=== PATIENT | female | born 1945 | race Caucasian/White ===

== ENCOUNTER → 2024-10-31 08:40 | Outpatient (REF) | payer MEDICARE, OTHER, SELFPAY | LOC: RAD 08:40 | PROVIDERS: ATTENDING PHYSICIAN Surgery Vascular Surgery; FAMILY PHYSICIAN Internal Medicine | DX: K55.1 Chronic vascular disorders of intestine (principal); I65.22 Occlusion and stenosis of left carotid artery | CPT/HCPCS: 93880; 93975 ==

== ENCOUNTER → 2024-12-02 08:59 | Outpatient (REF) | payer MEDICARE, OTHER, SELFPAY ==
[2024-12-02 15:49] LABS: Blood Urea Nitrogen 20 mg/dl (7-17); Calcium 9.2 mg/dl (8.4-10.2); Carbon Dioxide 28 mmol/L (22-30); Chloride 103 mmol/L (98-107); Glucose 94 mg/dl (70-99); Potassium 3.8 mmol/L (3.5-5.1); Sodium 136 mmol/L (135-145); eGFR > 60.00
== END ==
LOC: RAD 08:59
PROVIDERS: ATTENDING PHYSICIAN Internal Medicine; FAMILY PHYSICIAN Internal Medicine; OTHER PHYSICIAN Registered Nurse
DX: M88.9 Osteitis deformans of unspecified bone (principal); I65.22 Occlusion and stenosis of left carotid artery; Z01.812 Encounter for preprocedural laboratory examination
CPT/HCPCS: 36415; 77075; 80048

== ENCOUNTER → 2024-12-13 07:56 | Outpatient (REF) | payer MEDICARE, OTHER, SELFPAY | LOC: RAD 07:56 | PROVIDERS: ATTENDING PHYSICIAN Registered Nurse; FAMILY PHYSICIAN Internal Medicine | DX: I65.22 Occlusion and stenosis of left carotid artery (principal) | CPT/HCPCS: 70496; 70498; Q9967 ==

== ENCOUNTER 2025-01-19 05:51 | Inpatient (IN) | payer MEDICARE, OTHER, SELFPAY ==
[2025-01-16 09:47] VITALS: BMI 19.5
[2025-01-16 10:07] LABS: Hematocrit 40.2 % (37.0-47.0); Hemoglobin 14.0 g/dL (12.0-16.0); Mean Corp Hgb Conc. 34.8 g/dL (33.0-37.0); Mean Corpuscular Volume 96.9 fL (81.0-99.0); Nucleated Red Blood Cells % 0 %; Platelet Count 193 10^3/uL (130-400); Red Cell Dist. Width 12.8 % (11.5-14.5)
[2025-01-16 10:23] LABS: INR 1.00; PT 13.5 Sec (11.4-14.6)
[2025-01-16 10:24] LABS: APTT 32.2 Sec (23.4-35.0)
[2025-01-16 10:26] LABS: Blood Urea Nitrogen 16 mg/dl (7-17); Calcium 9.7 mg/dl (8.4-10.2); Carbon Dioxide 29 mmol/L (22-30); Chloride 104 mmol/L (98-107); Estimated Creatinine Clearance 60 ml/min; Glucose 90 mg/dl (70-99); Potassium 3.7 mmol/L (3.5-5.1); Sodium 139 mmol/L (135-145); eGFR > 60.00
[2025-01-16 11:10] LABS: Hepatitis C Antibody Reactive (Negative)
[2025-01-19] VITALS (9 sets, daily range): BP systolic 113–151; BP diastolic 68–75; BMI 19.0
[2025-01-19] MEDS: BACTROBAN NASAL 1 GRAM NASAL (06:55)
[2025-01-19] MEDS: NSS 500 IV (06:56)
[2025-01-19] MEDS: PERIDEX 0.12% ORAL RINSE 15 ML PO (06:56)
--- NOTE | 2025-01-19 07:10 | W.SUR.PREOP ---
Pre-Operative Surgical Note
-
I have examined this patient prior to the performance of the scheduled procedure.
The patient's condition is unchanged from the time of the current History and
Physical and the patient is able to undergo the scheduled procedure.
--- NOTE | 2025-01-19 09:12 | W.SUR.POST ---
Surgical Immediate Post Op
Note
Pre Op Diagnosis: Left carotid artery stenosis
Post Op Diagnosis: Left carotid artery stenosis
Procedure Performed: Left carotid endarterectomy with bovine pericardial patch angioplasty under EEG monitoring
Primary Surgeon: Saran Barrientos M.D.
expanded duty dental assistant: CARRILLO Platt
Anesthesia: GETA
Estimated Blood Loss: 10 ml
Fluids: See anesthesia flowsheets
Drains/Shunts: N/A
Specimens/Cultures: Left carotid plaque
Doppler/Duplex/Angio (Y/N): Y, Doppler
Complications: None
Operative Findings: Successful left carotid endarterectomy with plaque removal. Upon waking from anesthesia patient can move bilateral upper extremities and lower extremities to command and spontaneously with equal strength. Tongue midline.
--- NOTE | 2025-01-19 09:23 | OR.RPT ---
Operative Report
Operative Report
PROCEDURE DATE: 01/19/2025
Preoperative diagnosis: Critical left carotid artery stenosis, asymptomatic.
Postoperative diagnosis: Same
Procedure: Left carotid endarterectomy with bovine pericardial patch angioplasty and intraoperative EEG/SSEP monitoring.
Surgeon: Floyd
Voltage Tester: DOMINIQUE Garcia, required for all aspects of procedure including assistance with traction/countertraction, following suture line, assistance with closure.
Complications: None
Anesthesia: General
Indications for procedure:
Critical left carotid artery stenosis. Risk/benefits/alternatives of endarterectomy fully discussed. Patient understood and wished to proceed.
Description of procedure:
Patient was identified brought to the operating room placed on the table in supine position. After the adequate administration of anesthesia and perioperative antibiotics she was prepped and draped in the standard surgical fashion. A standard
preoperative timeout was undertaken and everybody was in agreement the plan. A standard longitudinal incision was made in the left neck that was carried through the skin subcutaneous tissue. Using the electrocautery dissection was carried through
the platysma muscle layer and then alongside the anterior medial border of the sternocleidomastoid muscle. Then using a combination of sharp dissection with the Metzenbaum scissors and electrocautery I dissected along the anterior medial border of
the internal jugular vein. The common facial vein branch was ligated between silk ties and then divided. I then deepened my retraction. The common carotid artery was identified and carefully dissected away from the surrounding structures take
great care to avoid any injury to the structures. A vessel loop was passed around it which was double looped, but not yet tightened. Note the vagus nerve was protected from harm's way. I then continued my dissection up the common carotid artery
to the bulb staying only on the anterior surface of the carotid artery. Then I carried the dissection up to the internal carotid artery and then to the distal internal carotid artery. The internal carotid artery beyond a bulbous portions became
tortuous. This was noted on CT scan imaging. It was in this segment that the artery was noted to be soft. I identified where it was soft and carefully circumferentially dissected the internal carotid artery with minimal mobilization and passed a
vessel loop around it. Note the hypoglossal nerve was not visualized and felt to be further cephalad. The patient was given an appropriate dose of heparin 5000 units intravenously. Next I dissected the anterior surface of the external carotid
artery and superior thyroid branches. These were then carefully circumferentially dissected with minimal mobilization and vessel loops passed around these which were double looped but not yet tightened. After 3 minutes of heparin circulation time
and confirmation of optimization of the blood pressure with my anesthesiology colleagues, I clamped the distal internal carotid artery where it was soft. There was no immediate EEG or SSEP changes. After 1 minute of test clamp time there was no
changes noted. Therefore at this point, the vessel loops on the external carotid artery and superior thyroid branches were tightened and the common carotid artery was clamped where it was soft proximally. An arteriotomy was made on the common
carotid artery with an 11 blade and extended using a Russo scissor. I extended the arteriotomy onto the mid to distal internal carotid artery. The plaque was noted to be severely stenosis rendering, mainly calcified hard and somewhat coral reef
like plaque. A [place] was then used to endarterectomized the plaque. An endarterectomy plane was created, and the plaque was then endarterectomized. Distally I feathered the plaque out to a nice clean endpoint in the distal internal carotid
artery. Next I endarterectomized the intima back to normal intima in the common carotid artery, and the intima was cut flush there. I then grasped the plaque and everted plaque out of the origin of the external carotid artery. The plaque was then
sent off for specimen. The origin of the external carotid artery was carefully visualized and any fine debris were removed with fine forceps. Proximal and distal endpoints were then carefully inspected. Any fine debris was removed with fine
forceps, and the intima was noted to be nicely adherent proximally and distally. Next any fine debris were removed throughout the endarterectomy bed with fine forceps. A couple interrupted 7-0 Prolene tacking sutures were placed to tack the
posterior distal endpoint. I then flushed heparinized saline. I was very satisfied. Then, I used a bovine pericardial patch to sew a patch angioplasty with a running 6-0 Prolene suture. Prior to completing and tying down my suture line, I
backbled sequentially each branch and reclamped each branch prior to unclamping the next branch. I then irrigated with heparinized saline. Then I completed and tied down my suture line. We then restored flow in the common carotid and external
carotid arteries. Finally, we released flow in the internal carotid artery. There was excellent pulsatile flow in all 3 vessels. There was an excellent Doppler signal in the internal carotid artery distal to the patch with a good normal low
resistance Doppler signal. There was a good Doppler signal in the external carotid artery as well. A single 6-0 Prolene [id number] suture was placed on the anterior wall of the proximal external carotid artery due to bleeding point, likely
secondary to thinned wall. At this point hemostasis was fully noted on the suture line. Protamine was given to reverse the heparin. Hemostasis was completely achieved. We then irrigated and confirmed full hemostasis. We then closed in layers
with 2-0 Vicryl layer to reapproximate the sternocleidomastoid muscle, followed by 3-0 Vicryl platysma muscle running layer, followed by 4-0 Monocryl subcuticular stitch. Dermabond was applied. The patient tolerated procedure well. She awoke
moving all extremities to command with tongue in the midline.
[2025-01-19 10:18] LABS: Hematocrit 35.6 % (37.0-47.0); Hemoglobin 12.5 g/dL (12.0-16.0); Mean Corp Hgb Conc. 35.1 g/dL (33.0-37.0); Mean Corpuscular Volume 94.7 fL (81.0-99.0); Platelet Count 154 10^3/uL (130-400); Red Cell Dist. Width 12.9 % (11.5-14.5)
[2025-01-19 10:21] LABS: Blood Urea Nitrogen 18 mg/dl (7-17); Calcium 8.8 mg/dl (8.4-10.2); Carbon Dioxide 24 mmol/L (22-30); Chloride 107 mmol/L (98-107); Estimated Creatinine Clearance 60 ml/min; Glucose 97 mg/dl (70-99); Potassium 3.5 mmol/L (3.5-5.1); Sodium 136 mmol/L (135-145); eGFR > 60.00
[2025-01-19] MEDS: NSS 1000 IV ×2 (10:39→20:40)
[2025-01-19] MEDS: TYLENOL 650 MG PO (10:39)
[2025-01-19 10:59] LABS: Glucose - Point of Care 87 mg/dl (70-99)
--- NOTE | 2025-01-19 11:32 | PTCARENOTE ---
Rec'd patient from PACU around 1035. Patient alert and oriented. PERRLA; +3mm. MAEx4; normal strength. Smile symmetrical, tongue midline. Left neck incision closed with surgical adhesive; ecchymotic. NSR with pvcs, rate in the 60's. Left radial
jose zeroed and transduced. Correlating with bp cuff. BP within goal; SBP 100-165. Lung sounds cta. Weaned to RA. +BS. Sipping on clears. IVFs infusing as ordered. Only complaint is a toothache; Tylenol administered with improvement. Plan of care
discussed. Call dick within reach.
[2025-01-19 11:34] LABS: Magnesium 2.0 mg/dl (1.6-2.3)
--- NOTE | 2025-01-19 12:29 | CON.INTV ---
Consultation
Consultation Request
Date/Time Consultation Requested: 01/19
Date/Time Consultation Performed: 01/19
Reason for Consultation: Critical care
Medical History
-
History of Present Illness:
History obtained from the patient also reviewing inpatient and outpatient records. 79-year-old female with history of hypertension, hyperlipidemia, hepatitis C, Jackson's esophagitis who presents with left carotid stenosis identified as outpatient.
Patient underwent left carotid endarterectomy without complication 12/23/2024. We are asked to help from critical care standpoint
Presently, she denies any chest pain, shortness of breath, nausea, abdominal pain. She is complaining of some mild tooth discomfort on the left side otherwise denies headaches, vision changes.
.
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
Past Medical History
Past Medical History: None (See above)
Past Surgical History: None (See above)
Social History
Tobacco: Former Smoker (Quit smoking 40 years ago)
Alcohol: None
Drug: None
Personal: Partner
Employment: Retired (Real estate)
Family History
Family History: Other (Parents . Family history negative for blood clots, lung cancer)
Allergies / Home Medications
Allergies
Allergy/AdvReac Type Severity Reaction Status Date / Time
No Known Allergies Allergy Unverified 01/12/25 14:48
Home Medications
�Medication �Instructions �Recorded �Confirmed �Last Taken �Type
Pumpkin Seed Oil 1 cap PO DAILY Supplement 01/12/25 01/19/25 01/05/25 08:00 History
ascorbic acid (vitamin C) 500 mg 1,000 mg PO DAILY Supplement 01/12/25 01/19/25 01/05/25 08:00 History
tablet (Vitamin C)
aspirin 81 mg capsule 81 mg PO HS Blood Clot 01/12/25 01/19/25 01/17/25 20:00 History
Prevention/Tx
atorvastatin 20 mg tablet 20 mg PO HS High Cholesterol 10/23/25 10/30/25 10/28/25 20:00 History
calcium carbonate 1,000 mg PO DAILY Supplement 01/12/25 01/19/25 01/05/25 08:00 History
cholecalciferol (vitamin D3) 50 50 mcg PO DAILY Supplement 01/12/25 01/19/25 01/05/25 08:00 History
mcg (2,000 unit) capsule (Vitamin
D3)
coQ10 (ubiquinol) 100 mg capsule 100 mg PO DAILY Supplement 01/12/25 01/19/25 01/05/25 08:00 History
losartan 50 mg tablet 50 mg PO DAILY Blood Pressure 01/12/25 01/19/25 01/18/25 08:00 History
pantoprazole 20 mg tablet,delayed 20 mg PO DAILY Gastrointestinal 01/12/25 01/19/25 01/18/25 08:00 History
release Issue
triamterene 37.5 1 tab PO DAILY Blood Pressure 01/12/25 01/19/25 01/18/25 08:00 History
mg-hydrochlorothiazide 25 mg tablet
vitamin B complex 2 cap PO DAILY Supplement 01/12/25 01/19/25 01/05/25 08:00 History
Review of Systems
-
All other systems: Negative unless noted
Vitals / Labs / Diagnostic Testing
Vital Signs
Temp Pulse Resp BP Pulse Ox
97.8 F 78 20 113/70 92
01/19/25 11:58 01/19/25 12:00 01/19/25 12:00 01/19/25 10:25 01/19/25 12:00
Lab Data
01/19/25 09:50
01/19/25 09:50
Diagnostic Testing:
Physical Exam
-
HEENT: Normocephalic, Anicteric and Other ( left carotid incision intact)
Cardiovascular: S1/S2, Regular Rhythm, Murmur (n), Rub (n) and Peripheral Edema (n)
Respiratory: Wheeze (n), Rales (n), Rhonchi (n) and Non-Labored Respirations
GI: Soft, Non Distended and Non Tender
Neurology: Awake, Alert and No Motor Deficits (Cranial nerves intact, tongue midline)
Skin: Good Color
General: Comfortable
Assessment
-
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 We are asked to
help from critical care standpoint
S/p LCEA, 01/19/25
History of mesenteric vascular disease without symptoms
Conditions present prior to admission
hypertension/hyperlipidemia
GERD/Jackson's esophagitis
History of thoracic aortic aneurysm per imaging [facility], 4.25 cm
Aortic stenosis, mild
Not present on recent echo 2024
History of chronic hepatitis
Distant tobacco history, quit 40 years ago
Plan/recommendations
At this time, patient appears to be comfortable
Neurological exam nonfocal, complaining of left tooth pain otherwise tongue is midline
Chest x-ray without acute findings, cardiomegaly, kyphoscoliosis
Hemodynamically stable at this time postoperative EKG
Sinus rhythm with first-degree AV block
Left carotid incision intact
Moving forward
Continue with management per vascular surgery
Pain control
Follow hemodynamics, neurological exam
IV fluids
DVT prophylaxis: Subcutaneous heparin
Of note, patient did see cardiology preoperatively, cleared
Reviewed with critical care nursing
We will follow
TCCT 31 min
--- NOTE | 2025-01-19 16:31 | PTCARENOTE ---
No changes in assessment. Diet advanced. Appetite good. VSS.
--- NOTE | 2025-01-19 20:00 | PTCARENOTE ---
manager government, pt aaox3, denies pain. SR,1st degree HB,PVCs,PACs, HR 70-80s. B/L FA IV WNL- IVF infusing per work list. POC discussed, call dick with pt.
[2025-01-19] MEDS: HEPARIN SC (20:45)
[2025-01-19] MEDS: ASPIR LOW (ENTERIC COATED) 81 MG PO (20:52)
[2025-01-19] MEDS: LIPITOR 20 MG PO (20:52)
--- NOTE | 2025-01-20 | PTCARENOTE ---
no changes in pt assessment.
[2025-01-20 03:56] LABS: Hematocrit 35.0 % (37.0-47.0); Hemoglobin 11.7 g/dL (12.0-16.0); Mean Corp Hgb Conc. 33.4 g/dL (33.0-37.0); Mean Corpuscular Volume 98.9 fL (81.0-99.0); Platelet Count 150 10^3/uL (130-400); Red Cell Dist. Width 12.8 % (11.5-14.5)
[2025-01-20 03:57] LABS: INR 1.01; PT 13.8 Sec (11.4-14.6)
[2025-01-20 03:58] LABS: APTT 31.6 Sec (23.4-35.0)
--- NOTE | 2025-01-20 04:00 | PTCARENOTE ---
Neuro checks WNL per work list, no changes in pt assessment.
[2025-01-20 04:29] LABS: Blood Urea Nitrogen 18 mg/dl (7-17); Calcium 9.0 mg/dl (8.4-10.2); Carbon Dioxide 24 mmol/L (22-30); Chloride 109 mmol/L (98-107); Estimated Creatinine Clearance 60 ml/min; Glucose 104 mg/dl (70-99); Potassium 3.9 mmol/L (3.5-5.1); Sodium 134 mmol/L (135-145); eGFR > 60.00
[2025-01-20 06:00] VITALS: BMI 19.0
--- NOTE | 2025-01-20 07:00 | PTCARENOTE ---
Handoff neuro assessment benign. She is awake and alert. I informed her of the plan for today, and typically that Dr. Barrientos will round shortly and discontinue the IVF, have me remove the left radial arterial line, then have her get OOB and ambulate.
She verbalized her understanding. She denies and pain or discomfort. Left neck incision EWNDIE, ecchymotic. Red ecchymosis noted mid upper chest and on her arms. She stated she wakes up with them sometimes. I informed her on the importance of
handwashing especially before she touches her incision. I also instructed her not to take and baths, swim in pools or saunas until she has her first follow-up appointment with Dr. Barrientos's office. Reviewed s/s of infection, redness, pian, swelling,
discharge yellow, green or brown to notify her physician immediately. Safe environment maintained.
--- NOTE | 2025-01-20 07:46 | W.PN.INTV ---
Today's Communication / Plan
Recommendations
Ambulate
Patient without complaints
EKG consistent with first-degree AV block per my review. (Read as atrial fibrillation per 'cardiac services')
Await official cardiology read
Hope for disposition later today
Assessment
-
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 We are asked to
help from critical care standpoint
S/p LCEA, 01/19/25
History of mesenteric vascular disease without symptoms
Abnormal EKG
First-degree AV block
Conditions present prior to admission
hypertension/hyperlipidemia
GERD/Jackson's esophagitis
History of thoracic aortic aneurysm per imaging [facility], 4.25 cm
Aortic stenosis, mild
Not present on recent echo 2024
History of chronic hepatitis
Distant tobacco history, quit 40 years ago
Plan/recommendations
At this time, patient appears to be comfortable
Neurological exam nonfocal, complaining of left tooth pain otherwise tongue is midline
Chest x-ray without acute findings, cardiomegaly, kyphoscoliosis
Hemodynamically stable
EKG with Sinus rhythm with first-degree AV block (read as atrial fibrillation. I disagree)
Left carotid incision intact
Moving forward
Continue with management per vascular surgery
Pain control
Follow hemodynamics, neurological exam, stable
IV fluids advance diet, ambulate
Of note, EKG with first-degree AV block per my review
It is read by cardiac services as atrial fibrillation
Will need to confirm prior to discharge. I disagree with the report, we will await official cardiology interpretation
DVT prophylaxis: Subcutaneous heparin
Of note, patient did see cardiology preoperatively, cleared
Reviewed with critical care nursing, pharmacy, respiratory care
Anticipate disposition later today
Subjective Dataa
Subjective Data
Date of Service:
Date of Service: January 20, 2025
Subjective:
Patient is without complaints. She denies chest pain, nausea, shortness of breath, lightheadedness, dizziness. Her left jaw/tooth discomfort has since resolved. Left carotid incision intact
Objective Data
Data Reviewed
Vital Signs / I&O / Oxygen:
Vital Signs
Temp Pulse Resp BP Pulse Ox
98.3 F 60 15 113/70 96
01/20/25 07:27 01/20/25 06:00 01/20/25 06:00 01/19/25 10:25 01/20/25 06:00
Intake and Output
01/19/25 01/20/25 01/21/25
06:59 06:59 06:59
Intake Total 1810 / 1810
Output Total 425 / 425
Balance 1385 / 1385
SaO2 96
Nasal Cannula flow liters per 2
minute
Physical Exam
General: Comfortable and Other (Left carotid incision intact)
HEENT: Normocephalic, Anicteric and Moist Mucous Membranes
Cardiovascular: S1-S2, Regular Rhythm and Murmur (Occasional missed beat)
Respiratory: Wheeze (n), Crackles (n), Rhonchi (n) and Non-Labored Respirations
GI: Soft, Non Distended and Non Tender
Neurology: Awake, Alert, No Motor Deficits and Other (Cranial nerves intact, tongue midline)
Skin: Jaundice (n), Rash (n) and Bruising (Few scattered)
Labs/Micro/Reports
Lab Data
01/20/25 03:38
01/20/25 03:38
Laboratory Results
01/20/25
03:38
PT 13.8
INR 1.01
APTT 31.6
--- NOTE | 2025-01-20 08:01 | W.PN.VS ---
Addendum entered and electronically signed by Saran Barrientos MD 01/20/25 14:07:
Seen and examined with DOMINIQUE Garcia earlier this a.m. This is a late entry. Agree with findings as noted below. Left neck incision was clean dry and intact. No hematoma. Neurologically no focal deficits. Moves all extremities well. Tongue
midline. Plan/as discussed and noted below.
Original Note:
Today's Communication / Plan
-
Seen and assessed with Dr. Barrientos
Assessment/Plan
-
Postop day 1 left CEA
Plan:
DC A-line
DC IV fluids
Out of bed/ambulate
Regular diet
P.o. medications
Likely DC later today
Subjective Data
-
Date of Service: January 20, 2025
Patient seen at bedside this a.m. with Dr. Barrientos. No complaints at this time. No events overnight.
Objective Data
-
Vital Signs
Temp Pulse Resp BP Pulse Ox
98.3 F 60 15 113/70 96
01/20/25 07:27 01/20/25 06:00 01/20/25 06:00 01/19/25 10:25 01/20/25 06:00
Intake and Output
01/19/25 01/20/25 01/21/25
06:59 06:59 06:59
Intake Total 1810 / 1810
Output Total 425 / 425
Balance 1385 / 1385
Intake:
Oral fluids 120 / 120
IV fluids (Total) 1690 / 1690
Nss 1,000 ml @ 80 mls/hr IV . 1600 / 1600
[id number] JANAY Rx#:[id number]
Nss 500 ml @ 40 mls/hr IV . 40 / 40
[id number] JANAY Rx#:[id number]
normal saline 50 / 50
Output:
Urine, Voided 425 / 425
Other:
Number of approximated LARGE 1
amounts of urine
Lab Results
01/20/25 03:38
01/20/25 03:38
Calcium 9.0 mg/dl (8.4-10.2) 01/20/25 03:38
Phosphorus 3.9 mg/dl (2.5-4.5) 01/19/25 09:50
Magnesium 2.0 mg/dl (1.6-2.3) 01/19/25 09:50
Physical Exam
-
AAO x 3
No tachypnea on room air
No tachycardia
Abdomen soft
Neck site clean, dry, intact, soft, flat
Moves all extremities
Tongue midline
[2025-01-20] MEDS: DYAZIDE 1 CAPSULE PO (08:30)
[2025-01-20] MEDS: PROTONIX 20 MG PO (08:30)
[2025-01-20] MEDS: COZAAR 50 MG PO (08:31)
[2025-01-20] MEDS: HEPARIN 5000 UNITS SC (08:32)
[2025-01-20 08:36] VITALS: BP 140/58
[2025-01-20 09:49] VITALS: BP 132/66
--- NOTE | 2025-01-20 10:26 | PTCARENOTE ---
Pt ambulated on the entire 3rd floor x 2. She tolerated it well. Safe environment maintained.
[2025-01-20 11:49] VITALS: BP 96/54
[2025-01-20 11:51] VITALS: BP 134/62
--- NOTE | 2025-01-20 11:53 | W.DS.TRANS ---
DC Summary - Panel Gluer
-
Discharge Instructions:
Discharge Diagnosis/Procedures Left carotid endarterectomy
Diet As tolerated
Activity No strenuous activity
Driving Restrictions Not until seen by your Dr
Bathing Restrictions OK to Shower
Instructions:
Stand-Alone Forms: Vascular Surg Discharge Instr
Changes to Home Medications: No
Discharge Medications:
DC Medications w/original date entered in [employer]
Pumpkin Seed Oil 1 cap PO DAILY Supplement 01/12/25
ascorbic acid (vitamin C) 500 mg tablet (Vitamin C) 1,000 mg PO DAILY Supplement 01/12/25
aspirin 81 mg capsule 81 mg PO HS Blood Clot Prevention/Tx 01/12/25
atorvastatin 20 mg tablet 20 mg PO HS High Cholesterol 01/12/25
calcium carbonate 1,000 mg PO DAILY Supplement 01/12/25
cholecalciferol (vitamin D3) 50 mcg (2,000 unit) capsule (Vitamin D3) 50 mcg PO DAILY Supplement 01/12/25
coQ10 (ubiquinol) 100 mg capsule 100 mg PO DAILY Supplement 01/12/25
losartan 50 mg tablet 50 mg PO DAILY Blood Pressure 01/12/25
pantoprazole 20 mg tablet,delayed release 20 mg PO DAILY Gastrointestinal Issue 01/12/25
triamterene 37.5 mg-hydrochlorothiazide 25 mg tablet 1 tab PO DAILY Blood Pressure 01/12/25
vitamin B complex 2 cap PO DAILY Supplement 01/12/25
Home Medication Changes
Pending Results: No
--- NOTE | 2025-01-20 11:59 | W.DCSUMMARY ---
Discharge Summary
Discharge Data
Date of Admission: 01/19/25
Date of Discharge: 01/20/25
-
Pending Results: No
Hospital Course
Attending: Floyd
Consultants: Pulmonary medicine
Allergies: NKDA
Procedure with date: 01/19/2025: Left carotid endarterectomy with bovine pericardial patch angioplasty and EEG monitoring
History of present illness: The patient is an 79-year-old female with multiple medical conditions including: carotid stenosis, hypertension, hyperlipidemia, hepatitis C, Jackson's esophagus. Patient presented on 01/19/2025 for scheduled procedure
with Dr. Barrientos. Patient presented at baseline health with no reports of recent illness or trauma.
Hospital Course: Briefly, the patient underwent scheduled CEA without complications, and recovered in PACU. Following recovery phase one and two patient was transferred to intensive care unit per protocol for continued hemodynamic monitoring.
[employer] consulted to aid in medical management from a critical care perspective. POD #1 (01/20/2025) Patient neurologically intact, face symmetrical, and tolerating PO diet. Surgical neck site clean, dry, and intact with suture line well
approximated and soft. No evidence of hematoma. Arterial line and IV fluids discontinued. Patient able to ambulate without difficulty or incident. Patient stable for discharge to home.
Prescriptions and follow up appointment are included in the DC summary crm marketing executive note. All instructions were given to the patient in both written and verbal form and the patient expressed understanding.
Discharge Plan
-
Patient Disposition: Home (Routine Discharge)
Discharge Diagnosis/Procedures: Left carotid endarterectomy
Condition: Good
Diet: As tolerated
Activity: No strenuous activity
Driving Restrictions: Not until seen by your Dr
Bathing Restrictions: OK to Shower
Stand Alone Forms: Vascular Surg Discharge Instr
Referrals:
Douglas Salinas MD [Primary Care Provider, Internal Medicine]
Yasmine Weems CRNP [Specified Professional Personl, Vascular Surgery] - 02/02/25 1:00 pm
Prescriptions:
Continued
losartan 50 mg Tablet
50 mg PO DAILY
atorvastatin 20 mg Tablet
20 mg PO HS
pantoprazole 20 mg Tablet,Delayed Release (Dr/Ec)
20 mg PO DAILY
calcium carbonate 500 mg calcium (1,250 mg) Tablet
1,000 mg PO DAILY
ascorbic acid (vitamin C) [Vitamin C] 500 mg Tablet
1,000 mg PO DAILY
triamterene-hydrochlorothiazid 37.5-25 mg Tablet
1 tab PO DAILY
vitamin B complex Capsule
2 cap PO DAILY
cholecalciferol (vitamin D3) [Vitamin D3] 50 mcg (2,000 unit) Capsule
50 mcg PO DAILY
coQ10 (ubiquinol) 100 mg Capsule
100 mg PO DAILY
aspirin 81 mg Capsule
81 mg PO HS
Pumpkin Seed Oil
1 cap PO DAILY
Discharge Orders:
Discharge Patient (As Directed); Ordered 01/20/25
Ordered By: Darlene Garcia
Discharge Date and Time
Print Language: SPANISH
--- NOTE | 2025-01-20 12:10 | CM ---
Initial assessment completed with patient who lives with her in a 2 story plus lower level apartment, B/B on , 1 step to enter. RN [facility] patient was independent in ADL's and ambulation with no AD. There is a SPC and RW in the home. No in-home
services. Does have HC-POA. No VA benefits. No psychiatric hospitalizations. PCP is Dr. Douglas Salinas. Pharmacy is [facility] on [address] in [place]. Discharge POC: Anticipate home with no needs.
--- NOTE | 2025-01-20 12:16 | CM ---
Patient has been medically cleared for discharge to home with no additional skilled services. Admission IMM within the Medicare required 48 hour timeframe. Patient has arranged for transport home.
--- NOTE | 2025-01-20 12:30 | PTCARENOTE ---
Pt discharged. Right FA protective catheter removed. Reviewed all discharge instructions and she was able to verbalized the symptoms to call 911 for. Stroke booklet given and reviewed 'B.[id number].F.A.S.T.' acronym and encouraged her to cut it out and place
on her refrigerator. She understood all instructions.
== END 2025-01-20 12:45 | disposition home or self-care (01) | DRG 39 ==
LOC: ICU 05:51
PROVIDERS: Nurse Practitioner; ADMITTING PHYSICIAN Surgery Vascular Surgery; CONSULT PHYSICIAN Internal Medicine Critical Care Medicine; PRIMARYCARE PHYSICIAN Internal Medicine
PROC: 03CL0ZZ Extirpation of Matter from Left Internal Carotid Artery, Open Approach (ICD-10-PCS; 2025-01-19)
PROC: 03UL0KZ Supplement Left Internal Carotid Artery with Nonautologous Tissue Substitute, Open Approach (ICD-10-PCS; 2025-01-19)
DX: I65.22 Occlusion and stenosis of left carotid artery (principal); I10 Essential (primary) hypertension; E78.00 Pure hypercholesterolemia, unspecified; B18.2 Chronic viral hepatitis C; K21.9 Gastro-esophageal reflux disease without esophagitis; K22.70 Barrett's esophagus without dysplasia; M19.90 Unspecified osteoarthritis, unspecified site; I35.0 Nonrheumatic aortic (valve) stenosis; I71.20 Thoracic aortic aneurysm, without rupture, unspecified; I44.0 Atrioventricular block, first degree; Z87.891 Personal history of nicotine dependence; Z79.899 Other long term (current) drug therapy
CPT/HCPCS: 35301; 36415; 71045; 71046; 80048; 82962; 83735; 84100; 85025; 85027; 85610; 85730; 86803; 86850; 86900; 86901; 88304; 88311; 93005; 95938; 95941; 95955

== ENCOUNTER → 2025-02-14 11:19 | Outpatient (REF) | payer MEDICARE, OTHER, SELFPAY | LOC: RAD 11:19 | PROVIDERS: ATTENDING PHYSICIAN Physician Assistant; FAMILY PHYSICIAN Internal Medicine | DX: K55.1 Chronic vascular disorders of intestine (principal) | CPT/HCPCS: 74174; Q9967 ==

== ENCOUNTER → 2025-02-20 14:02 | Outpatient (REF) | payer MEDICARE, OTHER, SELFPAY | LOC: RAD 14:02 | PROVIDERS: ATTENDING PHYSICIAN Physician Assistant; FAMILY PHYSICIAN Internal Medicine | DX: I65.22 Occlusion and stenosis of left carotid artery (principal) | CPT/HCPCS: 93880 ==